=== PATIENT | female | born 1990 | race Two or more races ===

== ENCOUNTER 2024-05-08 22:24 | Inpatient (IN) | payer MEDICAID, OTHER ==
[~2024-05-08] VITALS: Ht 160 cm; Wt 69.1 kg
--- NOTE | 2024-05-08 23:58 | DVH ---
INDICATION: ruq pain TECHNIQUE: Multiple real-time sonographic images were obtained of the right upper quadrant. COMPARISON: None FINDINGS: The liver demonstrates homogeneous echotexture without focal mass lesions. The liver measur es 14.9 cm. There is no intrahepatic or extrahepatic ductal dilatation. The common duct is not adequately visuali zed. The gallbladder is moderately distended, filled with echogenic debris with a stone measuring 1.1 cm w ithin the neck. The gallbladder wall measures 0.6 cm and is abnormally thickened. Negative sonographi c Norman's sign. The right kidney measures 10.8 cm. The right kidney is normal in contour, size, and shape. The echoge nicity is normal. There is no hydronephrosis. The pancreas is not well visualized due to overlying bowel gas. IMPRESSION: 1. Echogenic debris-filled moderately distended gallbladder with stone identified within the neck and wall thickening. In the appropriate clinical setting, these findings may be consistent with acute ch olecystitis.
[2024-05-09 00:24] LABS: Alanine Aminotransferase 13 U/L (7-40); Albumin 4.8 g/dL (3.2-4.8); Alkaline Phosphatase 68 U/L (46-116); Anion Gap 8 (5-15); BUN/Creatinine Ratio 18.8 (10.0-20.0); Blood Urea Nitrogen 12 mg/dL (9-23); Calcium 9.6 mg/dL (8.7-10.4); Carbon Dioxide 25 mmol/L (20-31); Glucose 96 mg/dL (74-106); Lipase 32 U/L (12-53); Potassium 4.2 mmol/L (3.5-5.1); Sodium 141 mmol/L (136-145)
[2024-05-09 00:25] LABS: Bilirubin, Total 0.4 mg/dL (0.2-1.0)
[2024-05-09 00:39] LABS: Aspartate Aminotransferase 13 U/L (13-40); Chloride 108 mmol/L (98-107)
[2024-05-09 00:42] LABS: Basophils # (auto) 0 10 ^3/uL (0-0.2); Basophils % (auto) 0.3 % (0.0-2.0); Eosinophils # (auto) 0.4 10 ^3/uL (0-0.8); Eosinophils % (auto) 3.8 % (0.0-7.0); Hemoglobin 13.1 g/dL (12.2-16.2); Lymphocytes # (auto) 2.3 10 ^3/uL (0.4-5.4); Lymphocytes % (auto) 23.1 % (10.0-50.0); Mean Corpuscular Hemoglobin 30.2 pg (28.0-32.0); Mean Corpuscular Hgb Conc. 33.7 g/dL (32.0-36.0); Mean Corpuscular Volume 89.6 fL (80.0-100.0); Monocytes # (auto) 0.8 10 ^3/uL (0-1.3); Monocytes % (auto) 8.1 % (0.0-12.0); Neutrophils # (auto) 6.4 10 ^3/uL (1.6-8.6); Neutrophils % (auto) 64.7 % (37.0-80.0); Platelet Count (auto) 216 10^3/uL (140-450); Red Blood Cells 4.35 10^6/uL (4.0-5.20); Red Cell Distribution Width 13.2 % (11.8-14.3); White Blood Cell 9.9 10^3/uL (4.4-10.8)
--- NOTE | 2024-05-09 01:53 | ED.PDOC ---
History of Present Illness HPI Comments 34 y/o F presents with c/o RUQ abdominal pain, that radiates to her right-upper back, for 3x weeks, today. Patient endorses on being seen, evaluated, diagnosed with, and prescribed pain medication for gallstones 2x, already, at [facility] ([facility]). She reports on pain returning after eating or whenever her aforementioned pain medications is out of her system. Patient states on recent pain onset following salad consumption, earlier. She denies any nausea vomiting, diarrhea, or other associated symptoms at this time. Chief Complaint: Abdominal Pain Time Seen by MD: 23:20 Reviewed Notes: Nurses Notes, Medications, Allergies Allergies: Coded Allergies: NO KNOWN ALLERGIES (Unverified , 05/08/24) Information Source: Patient Mode of Arrival: Ambulatory Past Medical History PAST MEDICAL HISTORY: Gallstones Surgical History: Denies all surgeries PRIVATE WEALTH ADVISOR History: Denies all PRIVATE WEALTH ADVISOR Hx Family History Family History: Unknown Social History Smoker: Non-Smoker Alcohol: Occasionally Drugs: Denies Drug Use Lives In: Home All Other Systems: Reviewed and Negative (Comprehensive systems review obtained and negative except for what is stated in the HPI.) Physical Exam General Appearance: No Apparent Distress, Normal HEENT: Normal ENT Inspection, Pharynx Normal, TMs Normal Neck: Full Range of Motion, Non-Tender, Normal, Normal Inspection Respiratory: Chest Non-Tender, Lungs Clear, No Accessory Muscle Use, No Respiratory Distress, Normal Breath Sounds Cardiovascular: No Edema, No JVD, No Murmur, No Gallop, Normal Peripheral Pulses, Regular Rate/Rhythm Breast Exam: Deferred Gastrointestinal: No Organomegaly, No Pulsatile Mass, Normal Bowel Sounds, RUQ (tenderness ), Soft, Tenderness (RUQ tenderness ) Genitalia: Deferred Pelvic: Deferred Rectal: Deferred Extremities: No calf tenderness, Normal capillary refill, Normal inspection, No rmal range of motion, Non-tender, No pedal edema Musculoskeletal : Apperance: Normal Neurologic: Alert, engraver rubber II-XII nml as Tested, No Motor Deficits, Normal Affect, Normal Mood, No Sensory Deficits Cerebellar Function: Normal Reflexes: Normal Skin: Dry, Normal Color, Warm Lymphatic: No Adenopathy Was a procedure done? Was a procedure done?: No Differential Dx Considerations may include: cholelithiasis, cholecystitis, gastritis, gastroenteritis, among others X-Ray, Labs, Meds, VS Vital Signs Date Time Temp Pulse Resp B/P (MAP) Pulse Ox O2 Delivery O2 Flow Rate FiO2 05/08/24 23:17 98.6 74 20 105/60 (75) 98 98.6 Lab Test 05/08/24 23:51 Range/Units White Blood Count 9.9 4.4-10.8 10^3/uL Red Blood Count 4.35 4.0-5.20 10^6/uL Hemoglobin 13.1 12.2-16.2 g/dL Hematocrit 39.0 36.0-46.0 % Mean Corpuscular Volume 89.6 80.0-100.0 fL Mean Corpuscular Hemoglobin 30.2 28.0-32.0 pg Mean Corpuscular Hemoglobin Concent 33.7 32.0-36.0 g/dL Red Cell Distribution Width 13.2 11.8-14.3 % Platelet Count 216 140-450 10^3/uL Mean Platelet Volume 8.9 6.9-10.8 fL Neutrophils (%) (Auto) 64.7 37.0-80.0 % Lymphocytes (%) (Auto) 23.1 10.0-50.0 % Monocytes (%) (Auto) 8.1 0.0-12.0 % Eosinophils (%) (Auto) 3.8 0.0-7.0 % Basophils (%) (Auto) 0.3 0.0-2.0 % Neutrophils # (Auto) 6.4 1.6-8.6 10 ^3/uL Lymphocytes # (Auto) 2.3 0.4-5.4 10 ^3/uL Monocytes # (Auto) 0.8 0-1.3 10 ^3/uL Eosinophils # (Auto) 0.4 0-0.8 10 ^3/uL Basophils # (Auto) 0 0-0.2 10 ^3/uL Nucleated Red Blood Cells 0.0 % Sodium Level 141 136-145 mmol/L Potassium Level 4.2 3.5-5.1 mmol/L Chloride Level 108 H 98-107 mmol/L Carbon Dioxide Level 25 20-31 mmol/L Anion Gap 8 5-15 Blood Urea Nitrogen 12 9-23 mg/dL Creatinine 0.64 0.550-1.02 mg/dL Glomerular Filtration Rate Calc 118 >90 mL/min BUN/Creatinine Ratio 18.8 10.0-20.0 Serum Glucose 96 74-106 mg/dL Calcium Level 9.6 8.7-10.4 mg/dL Total Bilirubin 0.4 0.2-1.0 mg/dL Aspartate Amino Transferase (AST) 13 13-40 U/L Alanine Aminotransferase (ALT) 13 7-40 U/L Alkaline Phosphatase 68 46-116 U/L Total Protein 8.0 5.7-8.2 g/dL Albumin 4.8 3.2-4.8 g/dL Lipase 32 12-53 U/L Beta HCG, Quantitative 0.6 L 1.5-4.2 mIU/mL [place] [id number] Ph: [phone] DIAGNOSTIC IMAGING Diagnostic Imaging Report : [id number] Signed PATIENT: KRISTA BOLTON ACCT: [id number] UNIT: [id number] : 1990 LOC: ER ROOM / BED: / AGE / SEX: 34 / F ADM STATUS: REG ER SERVICE [id number] ORDERING PHYSICIAN: DINORAH HOLM MD PROCEDURE(s): GBUS - GALLBLADDER REASON: ruq pain ORDER NUMBER(s): [id number], ACCESSION NUMBER(s): [id number] INDICATION: ruq pain TECHNIQUE: Multiple real-time sonographic images were obtained of the right upper quadrant. COMPARISON: None FINDINGS: The liver demonstrates homogeneous echotexture without focal mass lesions. The liver measures 14.9 cm. There is no intrahepatic or extrahepatic ductal dilatation. The common duct is not adequately visualized. The gallbladder is moderately distended, filled with echogenic debris with a stone measuring 1.1 cm within the neck. The gallbladder wall measures 0.6 cm and is abnormally thickened. Negative sonographic Norman's sign. The right kidney measures 10.8 cm. The right kidney is normal in contour, size, and shape. The echogenicity is normal. There is no hydronephrosis. The pancreas is not well visualized due to overlying bowel gas. IMPRESSION: 1. Echogenic debris-filled moderately distended gallbladder with stone identified within the neck and wall thickening. In the appropriate clinical setting, these findings may be consistent with acute cholecystitis. ATED BY: RUI CONDE MD DICTATED DATE/TIME: 05/08/242355 SIGNED BY: RUI CONDE MD SIGNED DATE/TIME: 05/08/242355 CC: Time of 1ST Reevaluation: 23:50 Reevaluation 1ST: Unchanged Patient Education/Counseling: Diagnosis, Treatment, Prognosis, Need For Follow Up Family Education/Counseling: No Family Present Additional Information Previous visit documents reviewed: n/a The following tests were ordered, and results were reviewed by me: gallbladder ultrasound, lipase, beta HCG quant, CMP, CBC Additional Information was gathered from interviewing the following independent historians: n/a I reviewed and agreed with the following test results read by other providers: gallbladder ultrasound I discussed treatment and results with medical personnel and: Patient pt has evidence of cholecystitis. she will be admitted Departure 1 Departure Time of Disposition: 01:55 Impression: Primary Impression: Cholecystitis Disposition: ADMITTED INPATIENT Condition: Stable Discharged With: Self Critical Care Note Critical Care Time?: Yes (55 min-critical care time only) Critical care comment: Due to concerns for patients condition deteriorating, the care required my highest level of attention and readiness to intervene. I assessed the patient, reviewed the medical records, ordered the appropriate tests and treatments, then reassessed for results and responsiveness. I communicated with medical personnel and consultants and formulated a plan of care. Total critical care time excludes any procedures Stability Stability form required: No Heart Score Heart Score: Heart Score Response (Comments) Value History N/A 0 EKG N/A 0 Age N/A 0 Risk Factors N/A 0 Troponin N/A 0 Total 0 I personally scribed for DINORAH HOLM MD ([email or web address]) on 05/09/24 at 01:53. Electronically submitted by Sanju Baxter ([email or web address]). DINORAH HOLM MD May 09, 2024 01:53
[2024-05-09] MEDS: cefTRIAXone 1GM/50ML D5W 50 ML IV ONE (04:49)
[2024-05-09] MEDS: SODIUM CHLORIDE 0.9% 1,000 ML IV SCH (09:00)
[2024-05-09] MEDS ORDERED: HYDROcodone-ACET 5/325MG TAB PO PRN (09:00)
--- NOTE | 2024-05-09 09:15 | DVHHP2 ---
History of Present Illness Reason for Visit: Abdominal pain History of Present Illness Krystina Oliva is a 34-year-old female with past medical history of C- section x 4, who came in for abdominal pain. Patient states she has been experiencing abdominal pain with nausea and vomiting for 3 weeks. Patient states that the abdominal pain and vomiting began about 3 weeks ago after eating. She was seen at [facility] and told that she has cholelithiasis and cholecystitis. She was offered surgery or to try and manage it with diet and medication. She opted to try and manage with diet and medication. After a couple weeks her symptoms were worsening and becoming more frequent so she went back to [facility]. At that time the inflammation had decreased so they sent her in. Patient came to this hospital last night after having vomiting and abdominal pain after drinking water and eating a salad. Past Surgical History: (x 4), Other (Tummy tuck) Smoke: No ALCOHOL: none Drugs: None Lives: with Family Domestic Violence: Neg Review of Systems Constitutional: No: Fever, Chills, Sweats, Weakness, Malaise, Other Eyes: No: Pain, Vision change, Conjunctivae inflammation, Eyelid inflammation, Other, Redness ENT: No: Ear pain, Ear discharge, Nose pain, Nose discharge, Nose congestion, Mouth pain, Mouth swelling, Throat pain, Throat swelling, Other Respiratory: No: Cough, Dry, Shortness of breath, SOB with excertion, Wheezing, Hemoptysis, Pleuritic Pain, Sputum, Wheezing, Other Cardiovascular: No: Chest Pain, Palpitations, Orthopnea, Paroxysmal Noc. Dyspnea, Edema, Lt Headedness, Other Gastrointestinal: Nausea, Vomiting, Abdominal Pain; No: Diarrhea, Constipation, Melena, Hematochezia, Other Genitourinary: No Dysuria, No Frequency, No Incontinence, No Hematuria, No Retention, No Other Musculoskeletal: No: other, neck pain, shoulder pain, arm pain, back pain, hand pain, leg pain, foot pain Skin: No: Rash, Lesions, Jaundice, Bruising, Other Neurological: No: Weakness, Numbness, Incoordination, Change in speech, Confusion, Seizures, Other Allergies: Coded Allergies: NO KNOWN ALLERGIES (Unverified , 05/08/24) Exam Vital Signs Vital Signs Date Time Temp Pulse Resp B/P (MAP) Pulse Ox O2 Delivery O2 Flow Rate FiO2 05/09/24 07:16 Room Air* 0 21 05/09/24 07:14 98.1 62 17 117/75 (89) 97 98.1 General Appearance: Alert, Oriented X3, Cooperative, moderate distress HEENT: Atraumatic, PERRLA Respiratory: Clear to auscultation, Normal air movement Cardiovascular: Regular rate, Normal S1, Normal S2 Abdominal: Normal bowel sounds, Soft, Other (RUQ pain, tender on palpitation) Extremities: No clubbing, No cyanosis, No edema, Normal pulses, No tenderness/swelling Skin: No rashes, No breakdown, No significant lesion Neuro: Normal gait, Normal speech, Strength at 5/5 X4 ext, Normal tone Psych/Mental Status: Mental status NL, Mood NL Labs/Xrays Labs Test 05/08/24 23:51 Range/Units White Blood Count 9.9 4.4-10.8 10^3/uL Red Blood Count 4.35 4.0-5.20 10^6/uL Hemoglobin 13.1 12.2-16.2 g/dL Hematocrit 39.0 36.0-46.0 % Mean Corpuscular Volume 89.6 80.0-100.0 fL Mean Corpuscular Hemoglobin 30.2 28.0-32.0 pg Mean Corpuscular Hemoglobin Concent 33.7 32.0-36.0 g/dL Red Cell Distribution Width 13.2 11.8-14.3 % Platelet Count 216 140-450 10^3/uL Mean Platelet Volume 8.9 6.9-10.8 fL Neutrophils (%) (Auto) 64.7 37.0-80.0 % Lymphocytes (%) (Auto) 23.1 10.0-50.0 % Monocytes (%) (Auto) 8.1 0.0-12.0 % Eosinophils (%) (Auto) 3.8 0.0-7.0 % Basophils (%) (Auto) 0.3 0.0-2.0 % Neutrophils # (Auto) 6.4 1.6-8.6 10 ^3/uL Lymphocytes # (Auto) 2.3 0.4-5.4 10 ^3/uL Monocytes # (Auto) 0.8 0-1.3 10 ^3/uL Eosinophils # (Auto) 0.4 0-0.8 10 ^3/uL Basophils # (Auto) 0 0-0.2 10 ^3/uL Nucleated Red Blood Cells 0.0 % Sodium Level 141 136-145 mmol/L Potassium Level 4.2 3.5-5.1 mmol/L Chloride Level 108 H 98-107 mmol/L Carbon Dioxide Level 25 20-31 mmol/L Anion Gap 8 5-15 Blood Urea Nitrogen 12 9-23 mg/dL Creatinine 0.64 0.550-1.02 mg/dL Glomerular Filtration Rate Calc 118 >90 mL/min BUN/Creatinine Ratio 18.8 10.0-20.0 Serum Glucose 96 74-106 mg/dL Calcium Level 9.6 8.7-10.4 mg/dL Total Bilirubin 0.4 0.2-1.0 mg/dL Aspartate Amino Transferase (AST) 13 13-40 U/L Alanine Aminotransferase (ALT) 13 7-40 U/L Alkaline Phosphatase 68 46-116 U/L Total Protein 8.0 5.7-8.2 g/dL Albumin 4.8 3.2-4.8 g/dL Lipase 32 12-53 U/L Beta HCG, Quantitative 0.6 L 1.5-4.2 mIU/mL TECHNIQUE: Multiple real-time sonographic images were obtained of the right upper quadrant. FINDINGS: The liver demonstrates homogeneous echotexture without focal mass lesions. The liver measures 14.9 cm. There is no intrahepatic or extrahepatic ductal dilatation. The common duct is not adequately visualized. The gallbladder is moderately distended, filled with echogenic debris with a stone measuring 1.1 cm within the neck. The gallbladder wall measures 0.6 cm and is abnormally thickened. Negative sonographic Norman's sign. The right kidney measures 10.8 cm. The right kidney is normal in contour, size, and shape. The echogenicity is normal. There is no hydronephrosis. The pancreas is not well visualized due to overlying bowel gas. IMPRESSION: 1. Echogenic debris-filled moderately distended gallbladder with stone identified within the neck and wall thickening. In the appropriate clinical setting, these findings may be consistent with acute cholecystitis. Assessment/Plan Assessment/Plan Assessment: Cholecystitis, Cholelithiasis, Plan: Admit to Med-Surg, Surgical consult, NPO, Pain management, Antiemetics PRN, IV antibiotics, IV hydration, PT/PTT, Plan discussed with: Patient My Orders Orders - MARTY POWERS Procedure Category Date Status Time Admit ADMIT 05/09/24 Transmitted 08:59 Code Status CODE 05/09/24 Transmitted 08:59 0.9% Ns 1000 Ml PHA 05/09/24 Transmitted 09:00 Hydrocodone-Acet PHA 05/09/24 Transmitted 5/325mg Tab ([place] 09:00 Ondansetron Hcl PHA 05/09/24 Transmitted (Zofran) 09:00 Docusate Sodium PHA 05/09/24 Transmitted Capsule (Colace 09:00 Complete Blood Count LAB 05/10/24 Verified 04:00 Comprehensive LAB 05/10/24 Verified Metabolic Panel 04:00 Npo (Nothing By DIET 05/09/24 Transmitted Mouth) Diet Breakfast Condition: Serious BEATRIZ 05/09/24 Transmitted 08:59 Acetaminophen Tablet PHA 05/09/24 Transmitted (Tylenol Tablet) 09:00 * Surgical Consult CONS 05/09/24 Transmitted Date of Service: May 09, 2024 Billing Provider: MARTY POWERS Common Visit Codes: [id number] INP/OBS CARE (MOD) MARTY POWERS May 09, 2024 09:15
[2024-05-09 10:45] VITALS: BP 112/53; PULSE 56; PULSE 63; RESP 16; RESP 17; TEMP 97.3; O2SAT 97; O2SAT 99
[2024-05-09 10:47] VITALS: BP 112/53; PULSE 63; RESP 17; TEMP 97.3; O2SAT 99
[2024-05-09 12:26] LABS: INR 1.04 (0.9-1.15); Partial Thromboplastin Time 31.6 SEC (24.5-34.5)
[2024-05-09 13:10] VITALS: BP 117/62; PULSE 62; RESP 16; TEMP 97.6; O2SAT 100
--- NOTE | 2024-05-09 13:38 | DVHINCON2 ---
Date of service: May 09, 2024 Allergies: Coded Allergies: NO KNOWN ALLERGIES (Unverified , 05/08/24) Current Medications Current Medications Medications (Trade) Dose Ordered Sig/[place] Route PRN Reason Start Time Stop Time Status Last Admin Sodium Chloride 1,000 ml @ 100 mls/hr Q10H IV 05/09/24 09:00 Acetaminophen/ Hydrocodone Bitart ([place] 5/325MG Tab) 1 tab Q4HP PRN PO MODERATE PAIN (4-6 PAIN SCALE) 05/09/24 09:00 Ondansetron HCl (Zofran) 4 mg Q4HP PRN IV NAUSEA / VOMITING 05/09/24 09:00 Docusate Sodium (Colace Capsule) 100 mg BIDPRN PRN PO FOR CONSTIPATION 05/09/24 09:00 Acetaminophen (Tylenol Tablet) 650 mg Q6HP PRN PO PAIN SCALE 1-3 OR TEMP>100.4 05/09/24 09:00 Vital Signs Vital Signs Date Time Temp Pulse Resp B/P (MAP) Pulse Ox O2 Delivery O2 Flow Rate FiO2 05/09/24 13:10 97.6 62 16 117/62 (80) 100 97.6 05/09/24 07:16 Room Air* 0 21 Labs/Diagnostic Data Labs Test 05/09/24 11:59 05/08/24 23:51 Range/Units Prothrombin Time 11.0 9.3-11.8 sec Prothrombin Time INR 1.04 0.9-1.15 Activated Partial Thromboplast Time 31.6 24.5-34.5 SEC White Blood Count 9.9 4.4-10.8 10^3/uL Red Blood Count 4.35 4.0-5.20 10^6/uL Hemoglobin 13.1 12.2-16.2 g/dL Hematocrit 39.0 36.0-46.0 % Mean Corpuscular Volume 89.6 80.0-100.0 fL Mean Corpuscular Hemoglobin 30.2 28.0-32.0 pg Mean Corpuscular Hemoglobin Concent 33.7 32.0-36.0 g/dL Red Cell Distribution Width 13.2 11.8-14.3 % Platelet Count 216 140-450 10^3/uL Mean Platelet Volume 8.9 6.9-10.8 fL Neutrophils (%) (Auto) 64.7 37.0-80.0 % Lymphocytes (%) (Auto) 23.1 10.0-50.0 % Monocytes (%) (Auto) 8.1 0.0-12.0 % Eosinophils (%) (Auto) 3.8 0.0-7.0 % Basophils (%) (Auto) 0.3 0.0-2.0 % Neutrophils # (Auto) 6.4 1.6-8.6 10 ^3/uL Lymphocytes # (Auto) 2.3 0.4-5.4 10 ^3/uL Monocytes # (Auto) 0.8 0-1.3 10 ^3/uL Eosinophils # (Auto) 0.4 0-0.8 10 ^3/uL Basophils # (Auto) 0 0-0.2 10 ^3/uL Nucleated Red Blood Cells 0.0 % Sodium Level 141 136-145 mmol/L Potassium Level 4.2 3.5-5.1 mmol/L Chloride Level 108 H 98-107 mmol/L Carbon Dioxide Level 25 20-31 mmol/L Anion Gap 8 5-15 Blood Urea Nitrogen 12 9-23 mg/dL Creatinine 0.64 0.550-1.02 mg/dL Glomerular Filtration Rate Calc 118 >90 mL/min BUN/Creatinine Ratio 18.8 10.0-20.0 Serum Glucose 96 74-106 mg/dL Calcium Level 9.6 8.7-10.4 mg/dL Total Bilirubin 0.4 0.2-1.0 mg/dL Aspartate Amino Transferase (AST) 13 13-40 U/L Alanine Aminotransferase (ALT) 13 7-40 U/L Alkaline Phosphatase 68 46-116 U/L Total Protein 8.0 5.7-8.2 g/dL Albumin 4.8 3.2-4.8 g/dL Lipase 32 12-53 U/L Beta HCG, Quantitative 0.6 L 1.5-4.2 mIU/mL Assessment [id number] AC CHOLECYSTITIS LAP/OPEN CHOLECYSTECTOMY Plan discussed with: Patient SHELLEY ADAMS MD May 09, 2024 13:38
[2024-05-09] MEDS: ceFAZolin 2 GM/D5W100ml 100 ML IV ONE (14:14)
--- NOTE | 2024-05-09 14:16 | DVH ---
EXAM: XY CHEST XRAY 1 VIEW Indication: Pain Technique: Single frontal view of the chest was obtained Comparison: None FINDINGS: Lines and Tubes: None Lungs: No focal consolidation. Pleura: No effusion. No pneumothorax. Cardiomediastinal contours: Unremarkable Bones: No acute osseous abnormality. IMPRESSION: No acute cardiopulmonary disease.
[2024-05-09 14:22] LABS: Urine Bacteria None Seen /hpf (None Seen)
[2024-05-09] MEDS: CELECOXIB 100 MG CAP ONE (15:04)
[2024-05-09] MEDS: ACETAMINOPHEN 500 MG TAB or CAP PO ONE ×2 (15:04→15:05)
[2024-05-09 15:05] LABS: Urine Blood Negative /uL (Negative); Urine Clarity Clear (Clear); Urine Color Yellow (Yellow); Urine Mucus FEW (None Seen); Urine Protein, UAD TRACE (Negative); Urine Specific Gravity 1.029 (1.001-1.035); Urine Squamous Epithelial Cell FEW /hpf (<5); Urine Urobilinogen Normal (Negative); Urine WBC 3 /HPF (0-5); Urine pH 6.5 (5.0-9.0)
[2024-05-09] MEDS: CELECOXIB 100 MG CAP PO ONE (15:05)
[2024-05-09] MEDS: GABAPENTIN 300 MG CAP PO ONE (15:05)
[2024-05-09] MEDS: GABAPENTIN 300 MG CAP ONE (15:05)
--- NOTE | 2024-05-09 15:21 | DVHINCON2 ---
DATE OF CONSULTATION: 05/09/2024 HISTORY OF PRESENT ILLNESS: This patient is 34 years old, coming in with right upper quadrant pain, off and on, went to _[facility] 2 times, was advised surgery, but was not done. She came to this hospital and she is complaining of right upper quadrant pain, diet related also. No nausea, vomiting. No constipation, diarrhea. No hematemesis, melena. No bleeding per rectum. PAST MEDICAL HISTORY: No diabetes, hypertension. PAST SURGICAL HISTORY: and a tummy tuck operation. PHYSICAL EXAMINATION: VITAL SIGNS: Afebrile, stable signs. HEENT: With no evidence of pallor, cyanosis, or jaundice. NECK: Supple, nontender with no thyromegaly or lymphadenopathy. CHEST AND LUNGS: Clear. HEART: Within normal limits. ABDOMEN: Soft, tender in the right upper quadrant, evidence of rebound. EXTREMITIES: Unremarkable. NEUROLOGIC: Intact. CLINICAL IMPRESSION: Acute cholecystitis. PLAN: Laparoscopic, possible open cholecystectomy. Benefits, risks discussed and a consent obtained. MD JAYA Dillon/VIPUL/RICKY TID: [id number] RECEIPT: [id number] cc: Annmarie Silvestre
[2024-05-09] MEDS ORDERED: KETAMINE 50mg/ML 1ml syringe ONE (15:22)
[2024-05-09] MEDS ORDERED: fentaNYL CITRATE 100 MCG/2 ML VL ONE ×2 (15:22→15:52)
[2024-05-09] MEDS ORDERED: HYDROmorphone HCL 2 MG/ML VL/or syr ONE (15:22)
[2024-05-09] MEDS ORDERED: MIDAZOLAM HCL 2MG/2ML 2ml VIAL (1mg/ml) ONE (15:23)
[2024-05-09] MEDS ORDERED: PROPOFOL 10 MG/ML 20 ML IV ONE (15:36)
[2024-05-09] MEDS ORDERED: GLYCOPYRROLATE 0.2 MG/ML 1ML VIAL ONE (15:36)
[2024-05-09] MEDS ORDERED: ONDANSETRON HCL 4 MG/2 ML VIAL ONE (15:36)
[2024-05-09] MEDS ORDERED: ePHEDrine SULFATE 50 MG/ML AMP ONE (15:36)
[2024-05-09] MEDS ORDERED: DexAMETHasone SOD PHOS 10MG/1ML VIAL INJ ONE (15:36)
--- NOTE | 2024-05-09 16:37 | DVHOP2 ---
Operative Report [id number] AC CHOLECYSTITIS LAP CHOLECYSTECTOMY EBL 5 CC NO DRAINS NO COMPLICATIONS SHELLEY ADAMS MD May 09, 2024 16:37
[2024-05-09 16:52] VITALS: PULSE 100; RESP 15; O2SAT 96
[2024-05-09] MEDS ORDERED: HYDROmorphone HCL 2 MG/ML VL/or syr IV PRN (17:00)
[2024-05-09] MEDS: ONDANSETRON HCL 4 MG/2 ML VIAL IV ONE (17:00)
--- NOTE | 2024-05-09 17:04 | DVHOP ---
DATE OF SURGERY: 05/09/2024 PREOPERATIVE DIAGNOSIS: Acute cholecystitis. POSTOPERATIVE DIAGNOSIS: Acute cholecystitis. PROCEDURE: Laparoscopic cholecystectomy. SURGEON: Grayson Goldman MD SNACK BAR ATTENDANT: None. ANESTHESIA: General. ESTIMATED BLOOD LOSS: Close to 5 mL. DRAINS: No drains were used. COMPLICATIONS: No complication encountered. DESCRIPTION OF PROCEDURE: The patient was prepped and draped in the usual sterile fashion in the supine position and a supraumbilical incision was applied, was taken down to the fascia. The Veress needle was introduced and CO2 insufflation was started to a pressure of 15 mmHg. The needle was withdrawn, replaced with a 5 mm trocar and a telescope was introduced and the gallbladder was found to be acutely inflamed, distended, a 12 mm port was applied close to the xiphisternum and two 5 mm ports were applied more laterally in subcostal line. With the patient in the head up and right upper lateral position, the cholecystostomy was done using the laparoscopy, and a laparoscopic cholecystostomy was done to decompress the gallbladder and then the gallbladder was grasped at the fundus and at the infundibulum and the cystic duct and artery were , dissected out and clipped proximally and distally using the Hem-o-Raymond clips and divided in between making sure CBD was kept out of harm's at all times and gallbladder was detached from the liver bed using Harmonic dissection, placed in an EndoCatch bag and removed from the xiphisternal wound without any complication. Hemostasis was secured. Irrigation fluid was removed. The port sites were free from bleeding. Berkley powder was applied for the liver bed for hemostasis and then the EndoClose suture used for the fascial closure of the xiphisternal wound. All the ports were withdrawn after all the CO2 had been let out and the patient was placed back supine. The wounds were then brought together using 3-0 Monocryl suture in a subcuticular fashion. Surgical glue was applied. The patient tolerated the procedure well and was taken back to recovery room in stable condition. MD JAYA Dillon/ROSY TID: [id number] RECEIPT: [id number] cc: Annmarie Silvestre
[2024-05-09] MEDS: ONDANSETRON HCL 4 MG/2 ML VIAL IV PRN (19:57)
[2024-05-09 21:00] VITALS: BP 108/59; PULSE 105; RESP 18; TEMP 97.7; O2SAT 97
[2024-05-10] VITALS (7 sets, daily range): BP systolic 93–119; BP diastolic 47–72; PULSE 73–107; RESP 18–20; TEMP 97.9–98.2; O2SAT 94–98
[2024-05-10] MEDS: ACETAMINOPHEN 325 MG TAB PO PRN (00:34)
[2024-05-10 06:10] LABS: Basophils # (auto) 0 10 ^3/uL (0-0.2); Eosinophils # (auto) 0 10 ^3/uL (0-0.8); Hematocrit 32.5 % (36.0-46.0); Hemoglobin 11.3 g/dL (12.2-16.2); Lymphocytes # (auto) 0.6 10 ^3/uL (0.4-5.4); Lymphocytes % (auto) 9.6 % (10.0-50.0); Mean Corpuscular Hemoglobin 30.3 pg (28.0-32.0); Mean Corpuscular Hgb Conc. 34.7 g/dL (32.0-36.0); Mean Corpuscular Volume 87.2 fL (80.0-100.0); Monocytes # (auto) 0.3 10 ^3/uL (0-1.3); Monocytes % (auto) 3.8 % (0.0-12.0); Neutrophils # (auto) 5.8 10 ^3/uL (1.6-8.6); Neutrophils % (auto) 86.6 % (37.0-80.0); Platelet Count (auto) 205 10^3/uL (140-450); Red Blood Cells 3.72 10^6/uL (4.0-5.20); Red Cell Distribution Width 12.7 % (11.8-14.3); White Blood Cell 6.8 10^3/uL (4.4-10.8)
[2024-05-10 08:22] LABS: Alanine Aminotransferase 23 U/L (7-40); Albumin 3.9 g/dL (3.2-4.8); Alkaline Phosphatase 63 U/L (46-116); Aspartate Aminotransferase 22 U/L (13-40); Blood Urea Nitrogen 14 mg/dL (9-23); Calcium 9.1 mg/dL (8.7-10.4); Carbon Dioxide 26 mmol/L (20-31); Potassium 4.7 mmol/L (3.5-5.1); Sodium 139 mmol/L (136-145); Total Protein 6.6 g/dL (5.7-8.2)
[2024-05-10 08:23] LABS: Bilirubin, Total 0.3 mg/dL (0.2-1.0)
[2024-05-10 08:31] LABS: Glucose 122 mg/dL (74-106)
[2024-05-10 09:12] LABS: Anion Gap 6 (5-15)
[2024-05-10 09:14] LABS: Chloride 107 mmol/L (98-107)
--- NOTE | 2024-05-10 12:09 | DVHPN2 ---
Subjective Continues to have surgical site pain Reviewed: Care Plan, H&P, Labs, Medications, Previous Orders Changes from previous H/P or p: No Changes General: Per HPI Eyes: No Pain, No Vision change, No Conjunctivae inflammation, No Eyelid inflammation, No Other, No Redness ENT: No Ear pain, No Ear discharge, No Nose pain, No Nose discharge, No Nose congestion, No Mouth pain, No Mouth swelling, No Throat pain, No Throat swelling, No Other Cardiovascular: No Chest Pain, No Palpitations, No Orthopnea, No Paroxysmal Noc. Dyspnea, No Edema, No Lt Headedness, No Other Respiratory: No Cough, No Dry, No Shortness of breath, No SOB with excertion, No Wheezing, No Hemoptysis, No Pleuritic Pain, No Sputum, No Other Gastrointestinal: No Nausea, No Vomiting, No Abdominal Pain, No Diarrhea, No Constipation, No Melena, No Hematochezia, No Other Genitourinary: No Dysuria, No Frequency, No Incontinence, No Hematuria, No Retention, No Other Musculoskeletal: No other, No neck pain, No shoulder pain, No arm pain, No back pain, No hand pain, No leg pain, No foot pain Skin: No Rash, No Lesions, No Jaundice, No Bruising, No Other Objective Vitals Vital Signs Date Time Temp Pulse Resp B/P (MAP) Pulse Ox O2 Delivery O2 Flow Rate FiO2 05/10/24 08:44 97.9 87 20 93/48 (63) 94 97.9 05/09/24 20:00 Nasal Cannula* 2 28 Intake/Output Intake and Output 05/10/24 07:00 Intake Total 100 ml Balance 100 ml Intake Oral 0 ml IV Total 100 ml # Voids 1 General Appearance: Alert, Oriented X3, Cooperative, mild distress HEENT: Atraumatic, PERRLA Lungs: Clear to auscultation, Normal air movement Cardiovascular: Normal S1, Normal S2 Abdomen: Normal bowel sounds, No hepatospenomegaly, No masses, Other (Surgical site D&I) Genitourinary: No Apparent Abnormalities Musculoskeletal: Normal sensory function, Normal motor function Extremities: No clubbing, No cyanosis, No edema, Normal pulses, No tenderness/swelling Neuro: Normal gait, Normal speech Skin: Dry, Intact Psych/Mental Status: Mental status NL, Mood NL Medications Current Medications Medications Dose Ordered Sig/Britany Route Start Time Stop Time Status Last Admin Dose Admin Sodium Chloride 1,000 ml @ 100 mls/hr Q10H IV 05/09/24 09:00 05/09/24 20:54 100 MLS/HR Acetaminophen/ Hydrocodone Bitart 1 tab Q4HP PRN PO 05/09/24 09:00 Ondansetron HCl 4 mg Q4HP PRN IV 05/09/24 09:00 05/09/24 19:57 4 MG Docusate Sodium 100 mg BIDPRN PRN PO 05/09/24 09:00 Acetaminophen 650 mg Q6HP PRN PO 05/09/24 09:00 05/10/24 08:16 650 MG Piperacillin Sod/ Tazobactam Sod 100 ml @ 25 mls/hr Q8HR IV 05/10/24 14:00 UNV Laboratory Results Laboratory Tests 05/10/24 05:42 Chemistry Test 05/10/24 05:42 Albumin 3.9 g/dL (3.2-4.8) Calcium Level 9.1 mg/dL (8.7-10.4) Total Protein 6.6 g/dL (5.7-8.2) LFT Test 05/10/24 05:42 Alanine Aminotransferase (ALT) 23 U/L (7-40) Alkaline Phosphatase 63 U/L (46-116) Aspartate Amino Transferase (AST) 22 U/L (13-40) Total Bilirubin 0.3 mg/dL (0.2-1.0) Urinalysis Test 05/09/24 13:31 Urine Color Yellow (Yellow) Urine Clarity Clear (Clear) Urine pH 6.5 (5.0-9.0) Urine Specific [place] 1.029 (1.001-1.035) Urine Protein Trace (Negative) H Urine Ketones 4+ (Negative) H Urine Blood Negative /uL (Negative) Urine Nitrite Negative (Negative) Urine Bilirubin Negative (Negative) Urine Urobilinogen Normal mg/dL (Negative) Urine Leukocyte Esterase Negative /uL (Negative) Urine RBC 2 /hpf (0 - 4) Urine Microscopic WBC 3 /HPF (0-5) Urine Squamous Epithelial Cells Few /hpf (<5) Urine Bacteria None seen /hpf (None Seen) Urine Mucus Few (None Seen) Urine Glucose Normal mg/dL (Normal) Labs and/or images reviewed: Labs reviewed by me, Image(s) reviewed by me Assessment/Plan Assessment/Plan Impression: -cholecystitis -postop anemia Plan: -surgical consultation. Postop report reviewed. -restart antibiotic therapy with Zosyn -pain management -start clear liquid diet, advanced as tolerated -repeat labs in a.m. -reassess for discharge in a.m. Total time spent with patient discussing and formulating plan of care: 35 minutes. This medical document was created using an electronic medical record system with [employer] dictation system. Although this document has been carefully reviewed, there may still be some phonetic and typographical errors. These areas are purely typographical due to imperfections of the software programs, and do not reflect any compromise in the patient's medical care. Plan discussed with: Patient, Other (RN) My Orders Orders - KAIN ROSALES NP Procedure Category Date Status Time Piperacillin-Tazob PHA 05/10/24 Logged 3.375gm (Zosyn 3.375g 14:00 Date of Service: May 10, 2024 Billing Provider: KAIN ROSALES NP Common Visit Codes: [id number] INP/OBS CARE(HIGH) KAIN ROSALES NP May 10, 2024 12:09
[2024-05-10] MEDS: PIPERACILLIN-TAZOB 3.375GM 100 ML IV SCH (13:49)
--- NOTE | 2024-05-10 14:04 | DVHPN2 ---
Progress Note Date Seen: May 10, 2024 Medical Necessity Reason Pt with a Central, PICC or Fol: No Objective vital signs Vital Sign Date Time Temp Pulse Resp B/P (MAP) Pulse Ox O2 Delivery O2 Flow Rate FiO2 05/10/24 12:37 98.2 73 18 101/52 (68) 98 98.2 05/09/24 20:00 Nasal Cannula* 2 28 Total Intake and Output 05/09/24 05/09/24 05/10/24 15:00 23:00 07:00 Intake Total 100 ml 0 ml 0 ml Balance 100 ml 0 ml 0 ml medications Current Medications Medications Dose Ordered Sig/Britany Route Start Time Stop Time Status Last Admin Dose Admin Sodium Chloride 1,000 ml @ 100 mls/hr Q10H IV 05/09/24 09:00 05/10/24 13:48 100 MLS/HR Acetaminophen/ Hydrocodone Bitart 1 tab Q4HP PRN PO 05/09/24 09:00 Ondansetron HCl 4 mg Q4HP PRN IV 05/09/24 09:00 05/09/24 19:57 4 MG Docusate Sodium 100 mg BIDPRN PRN PO 05/09/24 09:00 Acetaminophen 650 mg Q6HP PRN PO 05/09/24 09:00 05/10/24 08:16 650 MG Piperacillin Sod/ Tazobactam Sod 100 ml @ 25 mls/hr Q8HR IV 05/10/24 14:00 05/10/24 13:49 25 MLS/HR laboratory and microbiology Laboratory Tests 05/10/24 05:42 Test 05/10/24 05:42 Range/Units Serum Glucose 122 H 74-106 mg/dL Problem List/Assessment/Plan Problem List/Assessment/Plan AFEBRILE VSS ABD SOFT WOUNDS HEALING WBC WNL LFT WNL NO COMPLICATIONS ADVANCE DIET DANNI Plan discussed with: Patient SHELLEY ADAMS MD May 10, 2024 14:04
[2024-05-10] MEDS: DOCUSATE SOD 100 MG CAP PO PRN (19:58)
[2024-05-11 01:00] VITALS: BP 106/68; PULSE 82; RESP 20; TEMP 98.5; O2SAT 97
[2024-05-11] MEDS ORDERED: AMOX500T86 PO (07:50)
[2024-05-11] MEDS ORDERED: HYDR-4902 PO (07:50)
[2024-05-11 08:48] VITALS: BP 106/67; PULSE 81; RESP 18; TEMP 97.9; O2SAT 91
--- NOTE | 2024-05-11 09:41 | DVHPN2 ---
Progress Note Date Seen: May 11, 2024 Medical Necessity Reason Pt with a Central, PICC or Fol: No Objective vital signs Vital Sign Date Time Temp Pulse Resp B/P (MAP) Pulse Ox O2 Delivery O2 Flow Rate FiO2 05/11/24 09:35 97.9 05/11/24 08:48 81 18 106/67 (80) 91 05/11/24 08:00 Room Air* 0 21 Total Intake and Output 05/10/24 05/10/24 05/11/24 15:00 23:00 07:00 Intake Total 210 ml 900 ml Balance 210 ml 900 ml medications Current Medications Medications Dose Ordered Sig/Britany Route Start Time Stop Time Status Last Admin Dose Admin Sodium Chloride 1,000 ml @ 100 mls/hr Q10H IV 05/09/24 09:00 05/10/24 13:48 100 MLS/HR Acetaminophen/ Hydrocodone Bitart 1 tab Q4HP PRN PO 05/09/24 09:00 Ondansetron HCl 4 mg Q4HP PRN IV 05/09/24 09:00 05/09/24 19:57 4 MG Docusate Sodium 100 mg BIDPRN PRN PO 05/09/24 09:00 05/10/24 19:58 100 MG Acetaminophen 650 mg Q6HP PRN PO 05/09/24 09:00 05/11/24 09:35 650 MG Piperacillin Sod/ Tazobactam Sod 100 ml @ 25 mls/hr Q8HR IV 05/10/24 14:00 05/11/24 05:58 25 MLS/HR laboratory and microbiology Laboratory Tests 05/10/24 05:42 Test 05/10/24 05:42 Range/Units Serum Glucose 122 H 74-106 mg/dL Problem List/Assessment/Plan Problem List/Assessment/Plan AFEBRILE VSS ABD SOFT WOUNDS HEALING WBC WNL LFT WNL NO COMPLICATIONS ADVANCE DIET DANNI CLEARED FOR DISCHARGE INSTRUCTIONS RE DIET ACTIVITY F/UP GIVEN NURSE AT BEDSIDE Plan discussed with: Patient My Orders My Orders Orders - SHELLEY ADAMS MD Procedure Category Date Status Time Regular Diet DIET 05/10/24 Transmitted Dinner Dietary Evaluation Review Comments: 1. Continue Regular diet as tolerated, advise fat consumption </=50 gm daily while recovering post-operatively 2. Encourage good oral intakes Expected Outcomes/Goals: Adequate nutrition, improved GI sx, diet tolerance. SHELLEY ADAMS MD May 11, 2024 09:41
--- NOTE | 2024-05-11 11:02 | DVHDS2 ---
Discharge Summary Date of Admission May 09, 2024 at 08:59 Date of Discharge: May 11, 2024 Admitting Diagnosis Cholecystitis Labs/Diagnostic Data: Laboratory Results Test 05/10/24 05:42 05/09/24 13:31 05/09/24 11:59 05/08/24 23:51 White Blood Count 6.8 10^3/uL (4.4-10.8) Red Blood Count 3.72 10^6/uL (4.0-5.20) Hemoglobin 11.3 g/dL (12.2-16.2) Hematocrit 32.5 % (36.0-46.0) Mean Corpuscular Volume 87.2 fL (80.0-100.0) Mean Corpuscular Hemoglobin 30.3 pg (28.0-32.0) Mean Corpuscular Hemoglobin Concent 34.7 g/dL (32.0-36.0) Red Cell Distribution Width 12.7 % (11.8-14.3) Platelet Count 205 10^3/uL (140-450) Mean Platelet Volume 9.0 fL (6.9-10.8) Neutrophils (%) (Auto) 86.6 % (37.0-80.0) Lymphocytes (%) (Auto) 9.6 % (10.0-50.0) Monocytes (%) (Auto) 3.8 % (0.0-12.0) Eosinophils (%) (Auto) 0.0 % (0.0-7.0) Basophils (%) (Auto) 0.0 % (0.0-2.0) Neutrophils # (Auto) 5.8 10 ^3/uL (1.6-8.6) Lymphocytes # (Auto) 0.6 10 ^3/uL (0.4-5.4) Monocytes # (Auto) 0.3 10 ^3/uL (0-1.3) Eosinophils # (Auto) 0 10 ^3/uL (0-0.8) Basophils # (Auto) 0 10 ^3/uL (0-0.2) Nucleated Red Blood Cells 0.0 % Sodium Level 139 mmol/L (136-145) Potassium Level 4.7 mmol/L (3.5-5.1) Chloride Level 107 mmol/L (98-107) Carbon Dioxide Level 26 mmol/L (20-31) Anion Gap 6 (5-15) Blood Urea Nitrogen 14 mg/dL (9-23) Creatinine 0.61 mg/dL (0.550-1.02) Glomerular Filtration Rate Calc 119 mL/min (>90) BUN/Creatinine Ratio 23.0 (10.0-20.0) Serum Glucose 122 mg/dL (74-106) Calcium Level 9.1 mg/dL (8.7-10.4) Total Bilirubin 0.3 mg/dL (0.2-1.0) Aspartate Amino Transferase (AST) 22 U/L (13-40) Alanine Aminotransferase (ALT) 23 U/L (7-40) Alkaline Phosphatase 63 U/L (46-116) Total Protein 6.6 g/dL (5.7-8.2) Albumin 3.9 g/dL (3.2-4.8) Urine Color Yellow (Yellow) Urine Clarity Clear (Clear) Urine pH 6.5 (5.0-9.0) Urine Specific [place] 1.029 (1.001-1.035) Urine Protein Trace (Negative) Urine Ketones 4+ (Negative) Urine Blood Negative /uL (Negative) Urine Nitrite Negative (Negative) Urine Bilirubin Negative (Negative) Urine Urobilinogen Normal mg/dL (Negative) Urine Leukocyte Esterase Negative /uL (Negative) Urine RBC 2 /hpf (0 - 4) Urine Microscopic WBC 3 /HPF (0-5) Urine Squamous Epithelial Cells Few /hpf (<5) Urine Bacteria None seen /hpf (None Seen) Urine Mucus Few (None Seen) Urine Glucose Normal mg/dL (Normal) Prothrombin Time 11.0 sec (9.3-11.8) Prothrombin Time INR 1.04 (0.9-1.15) Activated Partial Thromboplast Time 31.6 SEC (24.5-34.5) Lipase 32 U/L (12-53) Beta HCG, Quantitative 0.6 mIU/mL (1.5-4.2) Other Laboratory Tests 05/10/24 05:42 Brief Hx & Hospital Course: History of Present Illness Krystina Oliva is a 34-year-old female with past medical history of C- section x 4, who came in for abdominal pain. Patient states she has been experiencing abdominal pain with nausea and vomiting for 3 weeks. Patient states that the abdominal pain and vomiting began about 3 weeks ago after eating. She was seen at [facility] and told that she has cholelithiasis and cholecystitis. She was offered surgery or to try and manage it with diet and medication. She opted to try and manage with diet and medication. After a couple weeks her symptoms were worsening and becoming more frequent so she went back to [facility]. At that time the inflammation had decreased so they sent her in. Patient came to this hospital last night after having vomiting and abdominal pain after drinking water and eating a salad. Course of hospitalization: Patient was assessed on day of admission by General surgery, for which the patient underwent laparoscopic cholecystectomy. Patient has had uneventful postop recovery. Patient has not had BM, but is passing gas. Patient was tolerating oral intake without any nausea or vomiting. Surgical site dry and intact. Patient has been cleared to be discharged home by surgery. Patient will follow up with discharge Clinic in one week as well as General surgery in 1-2 weeks. Patient is instructed not to lift anything greater than 5 lb until seen by the surgeon. Patient was agreeable with discharge plan. All questions answered. Physical examination General: Alert and Oriented x3. No acute distress. Well-nourished. Eyes: EOMI. Anicteric. HENT: Moist mucous membranes. Lungs: Clear to auscultation bilaterally. No accessory muscle use. Cardiovascular: Regular rate and rhythm. No murmur. No JVD. Abdomen: Soft, non-tender and non-distended. No palpable masses. Surgical site dry and intact Extremities: No edema. Non-tender. Skin: No rashes or lesions. Warm. Neurologic: No focal neurological deficits. CN II-XII grossly intact, but not individually tested. Psychiatric: Cooperative. Appropriate mood and affect. Total time spent with patient discussing and formulating plan of care: 35 minutes. This medical document was created using an electronic medical record system with [employer] dictation system. Although this document has been carefully reviewed, there may still be some phonetic and typographical errors. These areas are purely typographical due to imperfections of the software programs, and do not reflect any compromise in the patient's medical care. Consults/Reason for consult General surgery: Cholecystitis Operations or Procedures 05/09/2024: Laparoscopic cholecystectomy Condition at Discharge: Fair Final Diagnosis/Problems List Cholecystitis, status post cholecystectomy Secondary diagnosis: Anemia secondary to postop bleeding Discharge Disposition: Home Discharge Instruct/Medications Diet: Regular Activity: Light activity Activity comment: Do not lift anything greater than 5 lb for approximately two weeks Follow Up/Referral: Follow up with Dr. Eduardo Goldman in 1-2 weeks Discharge Clinic in one week Medications: Augmentin 500 mg p.o. b.i.d. x5 days [place] 5/325 q.8 hours as needed for [id number] pain 36 Discharge Statement: "Patient was advised to return to the ER or call 911 if any headaches, dizziness, shortness of breath, chest pain, abdominal pain, bleeding, fevers, or worsening of medical condition. Patient was counseled about treatment plan, medications, possible side effects, patientverbalized understanding. All questions were answered to the best of my ability. This discharge took greater then 30 minutes in planning, reviewing documentation, counseling the patient, and discussing with other team members." ASSESSMENT ASSESSMENT Assessment Cholecystitis, status post cholecystectomy Date of Service: May 11, 2024 Billing Provider: KAIN ROSALES NP Common Visit Codes: [id number] DISCH DAY >30min KAIN ROSALES NP May 11, 2024 11:02
[2024-05-11 12:49] VITALS: BP 95/54; PULSE 76; RESP 20; TEMP 98; O2SAT 93
== END 2024-05-11 14:17 | disposition home or self-care (01) | DRG 263 ==
LOC: ER 22:29 → OVERFLOW 05-09 08:59 → EAST 05-09 10:36
PROVIDERS: ADMIT Nurse Practitioner Acute Care; ATTEND Nurse Practitioner Acute Care
PROC: 0FT44ZZ Resection of Gallbladder, Percutaneous Endoscopic Approach (ICD-10-PCS; principal; 2024-05-09 15:23)
DX: K80.00 Calculus of gallbladder with acute cholecystitis without obstruction (principal); R71.0 Precipitous drop in hematocrit; Z98.891 History of uterine scar from previous surgery; Z79.899 Other long term (current) drug therapy
CPT/HCPCS: 36415; 71045; 76705; 80053; 81001; 83690; 84702; 85025; 85610; 85730; 96365; 99291; G0378; J1100; J2250; J2405; J2543; J2704